=== PATIENT | female | born 1935 | race Caucasian/White ===

== ENCOUNTER 2019-07-24 05:10 | Day surgery (SDC) | payer OTHER ==
[~2019-07-24 05:10] MED LIST: GABAPENTIN300 MG; HYDROCHLOROTH12.5 M1; LANTUS; METFORMIN HCL1000 MG; NORVASC5 MG; SINGULAIR5 MG; VASOTEC10 MG
== END 2019-07-24 14:10 | disposition home or self-care (01) ==
LOC: CIR.AMB 05:10
DX: T84.84XA Pain due to internal orthopedic prosthetic devices, implants and grafts, initial encounter (principal)

== ENCOUNTER → 2019-09-01 13:38 | Outpatient (CLI) | payer OTHER | END | disposition home or self-care (01) | LOC: LAB 13:38 | DX: E56.1 Deficiency of vitamin K (principal) ==

== ENCOUNTER 2021-10-26 07:12 | Outpatient (CLI) | payer OTHER | END 2021-10-26 09:17 | disposition home or self-care (01) | LOC: NUCLEAR 07:12 | PROVIDERS: ATTEND Internal Medicine Gastroenterology | DX: K31.84 Gastroparesis (principal) | CPT/HCPCS: 78264; A9541 ==